=== PATIENT | female | born 1970 | race Caucasian/White ===

== ENCOUNTER 2017-12-23 15:38 | Emergency (ER) | payer OTHER ==
[2017-12-23] MEDS ORDERED: TETANUS & DIPHTHERIA TOX,ADULT 0.5 ML VIAL ONE (16:09)
[2017-12-23] MEDS ORDERED: LIDOCAINE 1% 20 ML MDV ONE (16:09)
--- NOTE | 2017-12-23 16:29 | EDPHYS ---
Physician Documentation [facility] Name: Kb Augustin Age: 47 yrs Sex: Female : 1970 Arrival Date: 12/23/2017 Time: 15:43 Bed 10 Private MD: Saul Wise ED Physician Chuy Bauman HPI: 12/23 16:08 This 47 yrs old Female presents to ER via Ambulatory with complaints of Fish kb hook in leg. 16:08 The patient or guardian reports the patient has a suspected foreign body, of the right kb thigh. The reported likely foreign body is a fishhook. Onset: The symptoms/episode began/occurred just prior to arrival. Current symptoms: foreign body sensation. Treatment Prior to Arrival: tried to remove, but couldn't get out. The patient has not experienced similar symptoms in the past. The patient has not recently seen a physician. Historical: - Allergies: 15:59 No Known Allergies; ss - Home Meds: 15:59 None [Active]; ss - PMHx: 15:59 ovarian cysts; endometriosis; ss - PSHx: 15:59 None; ss - Immunization history:: Adult Immunizations unknown, Last tetanus immunization: unknown. - Social history:: Smoking status: Patient uses tobacco products, smokes one pack cigarettes per day. ROS: 16:08 Constitutional: Negative for fever, chills, and weight loss, Cardiovascular: Negative kb for chest pain, palpitations, and edema, Respiratory: Negative for shortness of breath, cough, wheezing, and pleuritic chest pain, Abdomen/GI: Negative for abdominal pain, nausea, vomiting, diarrhea, and constipation, MS/Extremity: Negative for injury and deformity, Neuro: Negative for headache, weakness, numbness, tingling, and seizure. 16:08 Skin: Positive for of the right quadriceps, fish hook. Exam: 16:08 Constitutional: This is a well developed, well nourished patient who is awake, alert, kb and in no acute distress. Head/Face: Normocephalic, atraumatic. Chest/axilla: Normal chest wall appearance and motion. Nontender with no deformity. No lesions are appreciated. Cardiovascular: Regular rate and rhythm with a normal S1 and S2. No gallops, murmurs, or rubs. Normal PMI, no JVD. No pulse deficits. Respiratory: Lungs have equal breath sounds bilaterally, clear to auscultation and percussion. No rales, rhonchi or wheezes noted. No increased work of breathing, no retractions or nasal flaring. Abdomen/GI: Soft, non-tender, with normal bowel sounds. No distension or tympany. No guarding or rebound. No evidence of tenderness throughout. MS/ Extremity: Pulses equal, no cyanosis. Neurovascular intact. Full, normal range of motion. Neuro: Awake and alert, GCS 15, oriented to person, place, time, and situation. Cranial nerves II-XII grossly intact. Motor strength 5/5 in all extremities. Sensory grossly intact. Cerebellar exam normal. Normal gait. 16:08 Skin: injury, puncture(s), that are deep, of the right quadriceps, fishhook . Vital Signs: 15:59 BP 204 / 108; Pulse 92; Resp 16; Temp 98.6(TE); Pulse Ox 100% on R/A; Weight 68.95 kg; ss Height 5 ft. 3 in. (160.02 cm); Pain 0/10; 16:30 BP 148 / 84; Pulse 69; Resp 17; Pulse Ox 99% on R/A; aj 15:59 Body Mass Index 26.93 (68.95 kg, 160.02 cm) ss Procedures: 16:27 Foreign Body Removal: a fishhook, from the right right quadriceps, by pushed hook kb through, cut off kel and pulled hook out. Dressinx4s were used to dress the wound, The patient tolerated the removal well. MDM: 16:04 Patient medically screened. kb 16:08 Data reviewed: vital signs, nurses notes. Data interpreted: Pulse oximetry: on room air kb is 100 %. Interpretation: normal. 16:11 Counseling: I had a detailed discussion with the patient and/or guardian regarding: the kb historical points, exam findings, and any diagnostic results supporting the discharge/admit diagnosis, the need for outpatient follow up, a family practitioner, to return to the emergency department if symptoms worsen or persist or if there are any questions or concerns that arise at home. 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 Exp: aj 01/02/2020. Lot #: [id number]. } Route: IM; Site: right deltoid; 16:31 Follow up: Response: No adverse reaction 16:13 Drug: Lidocaine (1 %) 1 vials Volume: 5 ml; Route: Infiltration; aj Disposition: 12/23/17 16:29 Discharged to Home. Impression: Puncture wound with foreign body of lower leg - [place], removed. - Condition is Stable. - Discharge Instructions: Fish Hook Removal. - Medication Reconciliation Form, Thank You Letter, Antibiotic Education, Prescription Opioid Use form. - Follow up: Emergency Department; When: As needed; Reason: Worsening of condition. Follow up: Private Physician; When: 2 - 3 days; Reason: Recheck today's complaints, Continuance of care, Re-evaluation by your physician. Addendum: 12/28/2017 19:51 Co-signature as Attending Physician, Chuy Bauman MD. m a2 Signatures: Barb Archer, ANAM-C ANAM-Briana Quintanilla RN RN aj Smirch, Shelby, RN RN ss Alzahri, Mohammad, MD MD ma2 Corrections: (The following items were deleted from the chart) 12/23 16:38 16:29 12/23/2017 16:29 Discharged to Home. Impression: Puncture wound with foreign body aj of lower leg - [place], removed. Condition is Stable. Forms are Medication Reconciliation Form, Thank You Letter, Antibiotic Education, Prescription Opioid Use. Follow up: Emergency Department; When: As needed; Reason: Worsening of condition. Follow up: Private Physician; When: 2 - 3 days; Reason: Recheck today's complaints, Continuance of care, Re-evaluation by your physician. kb
--- NOTE | 2017-12-23 16:29 | ER ---
Nurse's Notes [facility] Name: Kb Augustin Age: 47 yrs Sex: Female : 1970 Arrival Date: 12/23/2017 Time: 15:43 Bed 10 Private MD: Saul Wise Diagnosis: Puncture wound with foreign body of lower leg-[place], removed Presentation: 12/23 15:58 Presenting complaint: Patient states: fish hook in R thigh that occurred 1 hour ago by ss accident. Pt denies pain unless the lure moves. Transition of care: patient was not received from another setting of care. Onset of symptoms was December 23, 2017. Initial Sepsis Screen: Does the patient meet any 2 criteria? No. Patient's initial sepsis screen is negative. Does the patient have a suspected source of infection? No. Patient's initial sepsis screen is negative. Care prior to arrival: None. 15:58 Method Of Arrival: Ambulatory ss 15:58 Acuity: MARCI 4 ss Historical: - Allergies: 15:59 No Known Allergies; ss - Home Meds: 15:59 None [Active]; ss - PMHx: 15:59 ovarian cysts; endometriosis; ss - PSHx: 15:59 None; ss - Immunization history:: Adult Immunizations unknown, Last tetanus immunization: unknown. - Social history:: Smoking status: Patient uses tobacco products, smokes one pack cigarettes per day. Screenin:17 Abuse screen: Denies threats or abuse. Denies injuries from another. Nutritional aj screening: No deficits noted. Tuberculosis screening: No symptoms or risk factors identified. Fall Risk None identified. Assessment: 16:16 General: Appears in no apparent distress. comfortable, Behavior is calm, cooperative, aj appropriate for age. Pain: Complains of pain in right leg and right quadriceps. Neuro: Level of Consciousness is awake, alert, obeys commands, Oriented to person, place, time, situation. Respiratory: Airway is patent Respiratory effort is even, unlabored, Respiratory pattern is regular, symmetrical. Derm: Skin is intact, is healthy with good turgor, Skin is pink, warm \T\ dry. normal. Injury Description: Fish hook noted to right thigh. No bleeding. Vital Signs: 15:59 BP 204 / 108; Pulse 92; Resp 16; Temp 98.6(TE); Pulse Ox 100% on R/A; Weight 68.95 kg; Height 5 ft. 3 in. (160.02 cm); Pain 0/10; 16:30 BP 148 / 84; Pulse 69; Resp 17; Pulse Ox 99% on R/A; aj 15:59 Body Mass Index 26.93 (68.95 kg, 160.02 cm) ED Course: 15:43 Patient arrived in ED. mr 15:43 Saul Wise MD is Private Physician. mr 15:58 Triage completed. ss 15:59 Arm band placed on right wrist. ss 16:03 Briana Velázquez, RN is Primary Nurse. aj 16:04 Barb Archer FNP-C is [facility]. kb 16:04 Chuy Bauman MD is Attending Physician. kb 16:17 Patient has correct armband on for positive identification. aj 16:17 Assist provider with foreign body removal of a fish hook from right thigh using jeanine alligator clamps, Set up for procedure. Performed by Barb MERAZ Dressed with bandaid Patient tolerated well. 16:38 Patient did not have IV access during this emergency room visit. 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 Exp: aj 01/02/2020. Lot #: [id number]. } Route: IM; Site: right deltoid; 16:31 Follow up: Response: No adverse reaction aj 16:13 Drug: Lidocaine (1 %) 1 vials Volume: 5 ml; Route: Infiltration; aj Outcome: 16:29 Discharge ordered by MD. kb 16:38 Discharged to home ambulatory. aj 16:38 Condition: good 16:38 Discharge instructions given to patient, Instructed on discharge instructions, follow up and referral plans. wound care, Demonstrated understanding of instructions, follow-up care, wound care. 16:38 Patient left the ED. aj Signatures: Barb Archer FNP-C FNP-Briana Quintanilla, RN Carrie Kaye Erica Escobar, VALERI TRAMMELL
== END 2017-12-23 16:38 | disposition home or self-care (01) ==
LOC: ER 15:38
PROC: 3E0234Z Introduction of Serum, Toxoid and Vaccine into Muscle, Percutaneous Approach (ICD-10-PCS; principal; 2017-12-23)
DX: S71.141A Puncture wound with foreign body, right thigh, initial encounter (principal); X58.XXXA Exposure to other specified factors, initial encounter; Y93.9 Activity, unspecified; Y92.9 Unspecified place or not applicable
CPT/HCPCS: 90714; 99283